=== PATIENT | male | born 1945 | race African-American/Black ===

== ENCOUNTER 2021-09-17 10:34 | Emergency (ER) | payer MEDICARE, OTHER | END 2021-09-17 12:51 | disposition home or self-care (01) | LOC: MADERS 10:34 | DX: K64.9 Unspecified hemorrhoids (principal); L25.1 Unspecified contact dermatitis due to drugs in contact with skin; E78.5 Hyperlipidemia, unspecified; I10 Essential (primary) hypertension | CPT/HCPCS: 99282 ==